=== PATIENT | male | born 1980 | race Caucasian/White ===

== ENCOUNTER 2018-02-04 01:38 | Emergency (ER) | payer MEDICAID ==
[2018-02-04] MEDS: ONDANSETRON 4 MG INJ IV (02:00)
[2018-02-04] MEDS: morphine 10 MG INJ IV (02:01)
[2018-02-04] MEDS: IOHEXOL 350MG/ML 50 ML BTL (02:02)
[2018-02-04] MEDS: SOD CHLORIDE 0.9% 100 ML (02:02)
[2018-02-04] MEDS: IOHEXOL 100 ML (02:02)
[2018-02-04] MEDS: HYDROmorphONE 2 MG/ML SYG IV (03:10)
[2018-02-04] MEDS: CEFAZOLIN 1 GM/50 ML (PMX) 50 ML IVPB (03:12)
[2018-02-04] MEDS: SOD CHLORIDE 0.9% 500 ML IV (03:35)
== END 2018-02-04 05:57 | disposition home or self-care (01) ==
LOC: E/R 01:38
DX: S81.802A Unspecified open wound, left lower leg, initial encounter (principal); W34.00XA Accidental discharge from unspecified firearms or gun, initial encounter; Y92.9 Unspecified place or not applicable
CPT/HCPCS: 73706; 96374; 96375; 99285-25